=== PATIENT | male | born 1960 | race Caucasian/White ===

== ENCOUNTER → 2021-01-19 | Outpatient (CLI) | payer OTHER ==
[~2021-01-19] MED LIST: ESOM40CA PO
== END | disposition home or self-care (01) ==
LOC: CFH 14:32
PROVIDERS: ATTEND Internal Medicine Cardiovascular Disease
DX: Z13.6 Encounter for screening for cardiovascular disorders (principal); R94.31 Abnormal electrocardiogram [ECG] [EKG]
CPT/HCPCS: 75571

== ENCOUNTER → 2021-02-01 | Outpatient (CLI) | payer OTHER | END | disposition home or self-care (01) | LOC: CVU 06:48 | PROVIDERS: ATTEND Internal Medicine Cardiovascular Disease | DX: I35.8 Other nonrheumatic aortic valve disorders (principal); I21.19 ST elevation (STEMI) myocardial infarction involving other coronary artery of inferior wall; I25.89 Other forms of chronic ischemic heart disease; E78.00 Pure hypercholesterolemia, unspecified | CPT/HCPCS: 78452; 93017; 93306; 93356; A9502 ==

== ENCOUNTER 2021-02-23 13:14 | Day surgery (SDC) | payer OTHER ==
[~2021-02-23] VITALS: Ht 188 cm; Wt 111.8 kg
[~2021-02-23 13:14] MED LIST changes: +DIPHENHYDRAMINE 50 MG/ML, 1ML ONE; +SODIUM CHLORIDE 0.9% 1,000 ML IV SCH
[2021-02-23] MEDS ORDERED: DIPHENHYDRAMINE 50 MG/ML, 1ML IM ONE (13:30)
[2021-02-23] MEDS ORDERED: ROSU20TA2 PO (13:30)
[2021-02-23] MEDS ORDERED: ASPI-963 PO (13:31)
[2021-02-23] MEDS ORDERED: ALBU8.5H8 INH (13:33)
[2021-02-23] MEDS ORDERED: TESTOSTERONE (13:33)
[2021-02-23] MEDS ORDERED: testosterone (13:34)
[2021-02-23 13:42] VITALS: BP 141/90
[2021-02-23 13:48] LABS: BASOPHILS % (AUTO) 1 % (0-1); EOSINOPHILS % (AUTO) 2 % (1-7); LYMPHOCYTES % (AUTO) 21 % (22-44); MEAN CORPUSCULAR HEMOGLOBIN 30.6 pg (27.5-34.5); MEAN CORPUSCULAR HGB CONC 34.5 g/dL (33.2-36.2); MONOCYTES % (AUTO) 8 % (2-9); NEUTROPHILS % (AUTO) 67 % (42-75); PLATELET COUNT 179 x10^3/uL (130-400); RED BLOOD COUNT 5.42 x10^6/uL (4.38-5.82)
[2021-02-23 13:57] LABS: ANION GAP 8 mmol/L (5-15); CALCIUM 9.1 mg/dL (8.5-10.1); CHLORIDE 110 mmol/L (98-107); CREATININE 0.95 mg/dL (0.7-1.3)
[2021-02-23] MEDS ORDERED: FENTANYL PF 100 MCG/2ML ONE (15:00)
[2021-02-23] MEDS ORDERED: LIDOCAINE-MPF 1%, 5ML ONE (15:01)
[2021-02-23] MEDS ORDERED: VERAPAMIL 2.5 MG/ML, 2ML ONE (15:01)
[2021-02-23] MEDS ORDERED: HEPARIN 1,000 UNITS/ML, 10ML ONE (15:01)
[2021-02-23] MEDS ORDERED: MIDAZOLAM 1 MG/ML, 2ML ONE (15:01)
[2021-02-23] MEDS ORDERED: SODIUM CHLORIDE 0.9% 1,000 ML IV SCH (16:00)
== END 2021-02-23 17:05 | disposition home or self-care (01) ==
LOC: CACL 13:14
PROVIDERS: ATTEND Internal Medicine Cardiovascular Disease
DX: R93.1 Abnormal findings on diagnostic imaging of heart and coronary circulation (principal); I25.10 Atherosclerotic heart disease of native coronary artery without angina pectoris; Z79.899 Other long term (current) drug therapy; Z87.891 Personal history of nicotine dependence
CPT/HCPCS: 36415; 80048; 85025; 93458; 99156; 99157; C1769; C1894; J1200; J1644; J2250; J3010; Q9967